=== PATIENT | male | born 1945 | race Caucasian/White ===

== ENCOUNTER → 2023-12-30 15:48 | Outpatient (REF) | payer MEDICARE, OTHER, SELFPAY | LOC: RAD 15:48 | PROVIDERS: ATTENDING PHYSICIAN Internal Medicine | DX: N18.32 Chronic kidney disease, stage 3b (principal); R63.4 Abnormal weight loss | CPT/HCPCS: 71250; 74176 ==

== ENCOUNTER → 2024-02-19 09:18 | Outpatient (REF) | payer MEDICARE, OTHER, SELFPAY ==
[2024-02-19] VITALS (7 sets, daily range): BP systolic 59–145; BP diastolic 72–86
[2024-02-19 09:58] LABS: % Basophils 1.2 % (0-2); % Eosinophils 5.7 % (0-6); % Immature Granulocytes 0.2 % (0-0.5); % Lymphocytes 23.4 % (20.5-51.1); % Monocytes 10.9 % (1.7-9.3); % Neutrophils 58.6 % (42.2-75.2); Absolute Basophils 0.1 10^3/uL (0-0.2); Absolute Eosinophils 0.2 10^3/uL (0-0.7); Absolute Monocytes 0.5 10^3/uL (0.1-0.6); Absolute Neutrophils 2.5 10^3/uL (1.4-6.5); Hematocrit 40.1 % (39.0-52.0); Hemoglobin 13.1 g/dL (13.0-18.0); Mean Corp Hgb Conc. 32.7 g/dL (33.0-37.0); Mean Corpuscular Hgb 30.6 pg (27.0-31.0); Mean Corpuscular Volume 93.7 fL (80.0-94.0); Mean Platelet Volume 9.5 fL (7.4-10.4); Nucleated Red Blood Cells % 0 % (-); Platelet Count 133 10^3/uL (130-400); Red Blood Cell Count 4.28 10^6/uL (4.70-6.10); Red Cell Dist. Width 13.5 % (11.5-14.5); White Blood Cell Count 4.2 10^3/uL (4.8-10.8)
[2024-02-19 10:04] LABS: INR 1.36; PT 16.6 Sec (11.4-14.6)
[2024-02-19] MEDS: ATIVAN 0.5 MG IV (10:44)
[2024-02-19] MEDS: NSS (PRESERVATIVE FREE) 0.25 ML IV (10:44)
[2024-02-19] MEDS: FLUSH (NSS) 1 FLUSH IV (10:45)
== END ==
LOC: RADI 09:18
PROVIDERS: ATTENDING PHYSICIAN Registered Nurse; FAMILY PHYSICIAN Family Medicine
DX: D47.2 Monoclonal gammopathy (principal); D68.8 Other specified coagulation defects
CPT/HCPCS: 88305; 88311; 88312; 36415; 38222; 77012; 85025; 85610; 88313